=== PATIENT | female | born 1940 | race Caucasian/White ===

== ENCOUNTER 2016-06-25 11:16 | Inpatient (IN) | payer OTHER ==
[~2016-06-25] VITALS: Ht 152.4 cm; Wt 73.0 kg
[2016-06-25 11:26] VITALS: BP 138/64; PULSE 78; RESP 16; TEMP 97.8; O2SAT 100
--- NOTE | 2016-06-25 11:41 | NUR ---
Patient to ER bed to gown for evaluation. Side rails up. Report given to Eliz LEWIS.
--- NOTE | 2016-06-25 11:45 | NUR ---
PT. TO ER AAOx4 STATES THAT SHE GOT A CALL FROM HER PRIMARY CARE PHYSICIAN FOR ABNORMAL VALUES, PT. STATES THAT SHE FEELS FINE, DINIES SOB, DENIES CHEST PAIN, STATES THAT SHE FEELS EXERTIONS WITH HEAVY LOAD OF WORK OTHERWISE STATES NO FATIQUE, DENIES N/V DENIES HEADACHE, VITALS WNL
--- NOTE | 2016-06-25 11:50 | NUR ---
# 18 gauge angiocath placed to RAC. Use of asceptic technique. Opsite placed over site. Blood return noted. Blood for lab drawn from site. Flushed with 10 cc of normal saline. No evidence of infiltration noted. Patient tolerated well.
--- NOTE | 2016-06-25 11:55 | NUR ---
DR. FRIEDMAN AT BEDSIDE EXAMINING THE PT.
[2016-06-25 12:14] LABS: BILIRUBIN,URINE NEGATIVE (NEGATIVE); BLOOD, URINE NEGATIVE (NEGATIVE); CLARITY/URINE CLEAR (CLEAR); COLOR,URINE YELLOW (YELLOW); GLUCOSE,URINE NEGATIVE (NEGATIVE); KETONES,URINE NEGATIVE (NEGATIVE); LEUKOCYTE ESTERASE ,URINE NEGATIVE (NEGATIVE); NITRITE, URINE NEGATIVE (NEGATIVE); PROTEIN URINE NEGATIVE (NEGATIVE); UROBILINOGEN,URINE 0.2 (0.2-1.0)
[2016-06-25 12:17] LABS: BASOPHILS # (AUTO) 0.1 K/uL (0.0-0.2); EOSINOPHILS # (AUTO) 0.2 K/uL (0.0-0.4); MONOCYTES # (AUTO) 0.5 K/uL (0.0-1.0)
[2016-06-25 12:21] LABS: LYMPHOCYTES # (AUTO) 1.4 K/uL (1.0-5.5)
[2016-06-25 12:29] LABS: PROTHROMBIN TIME 10.4 SECS (9.5-12.5)
[2016-06-25 12:33] LABS: BASOPHILS % (AUTO) 1.2 % (0.0-2.0); LYMPHOCYTES % (AUTO) 26.4 % (20.5-51.5); MEAN CORPUSCULAR HEMOGLOBIN 17 pg (27-31); MEAN CORPUSCULAR HGB CONC 29 % (32-36); MEAN CORPUSCULAR VOLUME 61 fL (79.0-98.0); MONOCYTES % (AUTO) 8.8 % (1.7-9.3); NEUTROPHILS % (AUTO) 60.6 % (40.0-70.0); PLATELET COUNT (AUTO) 344 K/uL (130-430); RED BLOOD CELL COUNT(AUTO) 3.52 MIL/uL (4.2-6.2); RED CELL DISTRIBUTION WIDTH 18.4 % (9.0-15.0); WHITE BLOOD COUNT (AUTO) 5.2 K/uL (4.8-10.8)
[2016-06-25 12:35] LABS: HEMATOCRIT 21.4 % (36-48); HEMOGLOBIN 6.1 g/dL (12.0-16.0)
[2016-06-25 12:48] LABS: ANION GAP 5 (5-15); CALCIUM 8.9 mg/dL (8.4-11.0); CHLORIDE 105 mmol/L (98-107); CREATININE 0.69 mg/dL (0.55-1.30); GLUCOSE 104 mg/dL (70-99); POTASSIUM 4.2 mmol/L (3.5-5.1); SODIUM SERUM 136 mmol/L (136-145); UREA NITROGEN, BLOOD 14 mg/dL (8-21)
[2016-06-25 12:52] LABS: ALANINE AMINOTRANSFERASE 18 U/L (12-78); ALBUMIN 4.3 g/dL (3.4-4.8); ASPARTATE AMINOTRANSFERASE 11 U/L (10-37); TOTAL BILIRUBIN 0.5 mg/dL (0.0-1.0)
[2016-06-25] MEDS ORDERED: RANI-362 PO (12:52)
[2016-06-25] MEDS ORDERED: NAPR-227 PO (12:52)
[2016-06-25] MEDS ORDERED: AMOX-426 PO (12:52)
[2016-06-25] MEDS ORDERED: BECL8.7H (12:52)
[2016-06-25] MEDS ORDERED: LOVA20TA2 PO (12:52)
[2016-06-25] MEDS ORDERED: METF-509 PO (12:52)
--- NOTE | 2016-06-25 12:53 | NUR ---
MEDICATION RECONCILIATION COMPLETED
--- NOTE | 2016-06-25 13:10 | NUR ---
OBTAINED CONSENT TO BLOOD TRANSFUSION, PLACED IN CHART, INSTRUCTIONS EXLAINED BY MD FRIEDMAN AT BEDSIDE
--- NOTE | 2016-06-25 14:15 | NUR ---
Patient will be admitted to care of DR. HOLLAND. Admitted to MED SURG unit. Will go to room 129A. Summary report printed. Report given to CLAUDY LEWIS.
--- NOTE | 2016-06-25 14:22 | NUR ---
ADMISSION NOTE Received patient from ER via [email or web address], received report from Eliz LEWIS. Patient admitted with diagnosis of Anemia. Patient oriented to hospital routine, call light, toileting and safety-patient verbalized understanding.
[2016-06-25 14:30] VITALS: BP 126/47; PULSE 75; RESP 18; TEMP 98.3; O2SAT 100
--- NOTE | 2016-06-25 14:40 | NUR ---
BT INITIATION:H 6.05/08.4 Consent signed per agreeing to administration of blood. Blood has been type and crossmatched. Blood sent from blood bank. Information on unit of blood checked against patient wristband at bedside by two nurses. All information matches. Patient or responsible alliance party informed of potential complications associated with blood transfusion. Informed of possible transfusion reaction symptoms. Aware of need to notify nurse at once of itching, shortness of breath, flushing, feeling of impending doom, or other symptoms not previously present. Vital signs taken within 5 minutes prior to initiation of transfusion. RN will remain with patient for first 15 minutes of transfusion at which time vital signs will be re-assessed.
[2016-06-25] MEDS ORDERED: PANTOPRAZOLE SODIUM 80 MG in NS 100 ML IV ONE (16:00)
[2016-06-25 16:12] VITALS: BP 139/72; PULSE 77; RESP 17; TEMP 98; O2SAT 100
--- NOTE | 2016-06-25 17:25 | NUR ---
TRANSFUSION COMPLETED 1st unit of PRBC completed, pt afebrile, no s/s adverse reaction to blood. Protonix drip now infusing well to RAC at ordered rate with no s/s infiltration to site. Needs met, call light within reach.
[2016-06-25] MEDS ORDERED: DEXTROSE 50% JECT 50 ML DISP.SYRIN IVP PRN (17:45)
--- NOTE | 2016-06-25 17:45 | NUR ---
CALLED GI CONSULT TO DR REYNOSO, DR FERNANDEZ TELEVISION MECHANIC, RE: GI BLEED. SPOKE TO JOSE LUIS
[2016-06-25 18:15] LABS: IRON (SERUM) 13 mcg/dL (37-145); TOTAL IRON BIND. CAPACITY 482 ug/dL (250-450)
[2016-06-25 18:48] LABS: HEMATOCRIT 22.8 % (36-48); HEMOGLOBIN 6.7 g/dL (12.0-16.0)
--- NOTE | 2016-06-25 19:05 | NUR ---
CLOSING NOTE Pt resting quietly in bed with no s/s resp distress, no c/o pain or discomfort. IVF now infusing well to RAC at ordered rate with no s/s infiltration to site. Pt remains NPO. Needs met, call light within reach.
[2016-06-25] MEDS: D5NS 1,000 ML IV SCH (19:27)
[2016-06-25 20:00] VITALS: BP_SYST 131; BP_SYST 149; BP_DIAS 74; BP_DIAS 79; PULSE 67; PULSE 69; RESP 18; TEMP 97.2; TEMP 98.3; O2SAT 97; O2SAT 99
--- NOTE | 2016-06-25 20:00 | NUR ---
Opening Note Report received from day shift RN. Patient is in stable condition. IV, 18g is on the RAC running D5NS@100ml/hr. One unit of PRBC's was transfused during the day shift. One more unit is pending. While transfuse as soon as possible. Call light is within reach. Instructed to use it whenever in need of assistance.
--- NOTE | 2016-06-25 22:03 | NUR ---
Rounds Patient is in stable condition. Currently is being transfused with second unit of PRBC. Will call lab to have H&H drawn when transfusion is over.
--- NOTE | 2016-06-26 | NUR ---
Blood transfusion Second transfusion of PRBC is complete. Lab called to have H&H drawn. Will follow up with results.
[2016-06-26 00:44] VITALS: BP 136/77; PULSE 73; RESP 17; TEMP 97.6; O2SAT 96
[2016-06-26] MEDS: PANTOPRAZOLE SODIUM 40 MG/VIAL (PROTONIX) IVP SCH ×3 (00:48→23:44)
[2016-06-26 01:29] LABS: HEMATOCRIT 25.3 % (36-48); HEMOGLOBIN 7.5 g/dL (12.0-16.0)
--- NOTE | 2016-06-26 02:31 | NUR ---
Rounds Patient is currently resting in bed. No signs of distress noted. Call light is within reach. Still waiting for current H&H results.
--- NOTE | 2016-06-26 04:30 | NUR ---
Rounds Patient is in stable condition. Call light is within reach.
[2016-06-26 04:43] VITALS: BP 116/54; PULSE 66; RESP 18; TEMP 98.3; O2SAT 98
--- NOTE | 2016-06-26 05:04 | NUR ---
H&H Results. Called that lab inquiring regarding latest H&H. Spoke with Yesy from the lab. Stated that the latest results will be found under yesterday's date 06/25/16 with the time of 0138.
[2016-06-26 06:17] LABS: HEMATOCRIT 26.6 % (36-48); HEMOGLOBIN 7.7 g/dL (12.0-16.0)
--- NOTE | 2016-06-26 06:22 | NUR ---
Closing Note Patient is resting in bed. Current blood sugar is 115. No coverage needed. IV is on the RAC 18g running D5NS@100ml/hr. Call light is within reach. Consult with Dr. Whitney pending for today. Will give report to the oncoming nurse.
[2016-06-26] MEDS: D5NS 1,000 ML IV SCH ×2 (07:35→23:45)
--- NOTE | 2016-06-26 07:35 | NUR ---
rn notesL patient is aaox4. afebrile. vss stable. lungs bilaterally clear. abdomen soft and non distended. still on npo status. awaiting for Dr Whitney to come and evaluate the patient. has iv access on the rt ac #18 with D5Ns at 100cc/hr infusing on well. call lights within reach. maintained safety measures. informed patient to call for assistance. family at the bedside.
--- NOTE | 2016-06-26 08:00 | NUR ---
rounds: patient is stable. no pain nor distress noted.
[2016-06-26 08:33] VITALS: BP 137/63; PULSE 68; RESP 18; TEMP 97; O2SAT 99
--- NOTE | 2016-06-26 09:46 | NUR ---
due meds given.
--- NOTE | 2016-06-26 10:00 | NUR ---
Dr Iniguez called for low H/H result. awaiting to call back.
--- NOTE | 2016-06-26 11:04 | NUR ---
Dr Iniguez came and evaluate the patient. made orders for prbc 2 more units.
[2016-06-26] MEDS: INSULIN REGULAR, HUMAN 100 UNITS/ML, 10 ML VIAL (novoLIN R) SUBCUT PRN ×2 (12:03→17:39)
[2016-06-26 12:06] LABS: HEMATOCRIT 26.4 % (36-48); HEMOGLOBIN 7.9 g/dL (12.0-16.0)
[2016-06-26 12:30] VITALS: BP 132/71; PULSE 66; RESP 16; TEMP 97; O2SAT 100
--- NOTE | 2016-06-26 13:00 | NUR ---
still on npo status. latest bs is 104mg/dl. no coverage given.
--- NOTE | 2016-06-26 15:10 | NUR ---
first unit of Packed red blood cell. started at this time. vss stable.
[2016-06-26 16:30] VITALS: BP 138/67; PULSE 60; RESP 16; TEMP 99.8; O2SAT 100
--- NOTE | 2016-06-26 17:00 | NUR ---
requested to have throat swab. assists on adls.
--- NOTE | 2016-06-26 18:00 | NUR ---
bs latest is 85mg/dl. no coverage given. families is at the bedside.
--- NOTE | 2016-06-26 18:10 | NUR ---
first unit packed red blood ended at this time. afebrile vss stable. and documented. no hemolytic reaction noted. patient is stable
--- NOTE | 2016-06-26 19:00 | NUR ---
laboratory department called spoke to Valentina, to sent the credit union examiner to draw the h/h due for mark
--- NOTE | 2016-06-26 19:35 | NUR ---
sbar report given to incoming nurse Bettina LEWIS
[2016-06-26 19:53] LABS: HEMOGLOBIN 8.9 g/dL (12.0-16.0)
[2016-06-26 19:55] LABS: HEMATOCRIT 29.6 % (36-48)
[2016-06-26 20:00] VITALS: BP 149/74; PULSE 67; RESP 18; TEMP 98.3; O2SAT 97
--- NOTE | 2016-06-26 20:00 | NUR ---
Opening Note Report received from the day shift nurse. Patient is in stable condition. Currently NPO. GI consult is pending. Received one unit of PRBC during the day shit. One unit is pending for the warehouse worker 2nd shift. Will have H&H checked after the blood transfusion.
--- NOTE | 2016-06-26 22:00 | NUR ---
Rounds Patient is currently receiving second unit of PRBC. Tolerating well. Will have H&H checked once transfusion is over. Call light is within reach.
[2016-06-27] VITALS: BP 139/78; PULSE 55; RESP 18; TEMP 97.3; O2SAT 100
--- NOTE | 2016-06-27 | NUR ---
Rounds Patient is in stable condition. Currently sleeping in bed. Call light is within reach. No signs of distress noted.
[2016-06-27 01:16] LABS: HEMATOCRIT 32.1 % (36-48); HEMOGLOBIN 9.7 g/dL (12.0-16.0)
--- NOTE | 2016-06-27 02:00 | NUR ---
Rounds Patient is currently sleeping in bed. Call light is within reach.
[2016-06-27 04:00] VITALS: BP 136/72; PULSE 62; RESP 18; TEMP 97.6; O2SAT 99
--- NOTE | 2016-06-27 04:12 | NUR ---
Rounds Patient is in stable condition. No signs of distress noted. Call light is within reach.
[2016-06-27] MEDS: D5NS 1,000 ML IV SCH ×2 (05:39→18:00)
--- NOTE | 2016-06-27 06:09 | NUR ---
Closing Note Patient is in stable condition. Current blood sugar is 103. No coverage needed. IV is on the RAC running D5NS@100. Will give report to oncoming nurse and endorse to follow up with GI consult.
[2016-06-27 07:49] LABS: ALANINE AMINOTRANSFERASE 19 U/L (12-78); ALBUMIN 3.6 g/dL (3.4-4.8); ANION GAP 6 (5-15); ASPARTATE AMINOTRANSFERASE 13 U/L (10-37); CALCIUM 9.1 mg/dL (8.4-11.0); CHLORIDE 106 mmol/L (98-107); CREATININE 0.64 mg/dL (0.55-1.30); GLUCOSE 109 mg/dL (70-99); SODIUM SERUM 139 mmol/L (136-145); TOTAL BILIRUBIN 1.6 mg/dL (0.0-1.0); TOTAL PROTEIN, SERUM 6.4 g/dL (6.4-8.3); UREA NITROGEN, BLOOD 7 mg/dL (8-21)
[2016-06-27 07:55] LABS: BASOPHILS % (AUTO) 0.9 % (0.0-2.0); EOSINOPHILS # (AUTO) 0.2 K/uL (0.0-0.4); HEMATOCRIT 33.1 % (36-48); HEMOGLOBIN 10.2 g/dL (12.0-16.0); LYMPHOCYTES # (AUTO) 1.1 K/uL (1.0-5.5); LYMPHOCYTES % (AUTO) 25.9 % (20.5-51.5); MEAN CORPUSCULAR HEMOGLOBIN 21 pg (27-31); MEAN CORPUSCULAR HGB CONC 31 % (32-36); MEAN CORPUSCULAR VOLUME 69 fL (79.0-98.0); MONOCYTES # (AUTO) 0.4 K/uL (0.0-1.0); MONOCYTES % (AUTO) 10.5 % (1.7-9.3); NEUTROPHILS # (AUTO) 2.5 K/uL (1.8-7.7); NEUTROPHILS % (AUTO) 57.7 % (40.0-70.0); PLATELET COUNT (AUTO) 236 K/uL (130-430); RED CELL DISTRIBUTION WIDTH 25.4 % (9.0-15.0)
[2016-06-27 07:57] LABS: WHITE BLOOD COUNT (AUTO) 4.2 K/uL (4.8-10.8)
[2016-06-27 08:00] VITALS: BP 137/78; PULSE 59; RESP 18; TEMP 97.3; O2SAT 100
--- NOTE | 2016-06-27 08:30 | NUR ---
PATIENT IS AWAKE AND ALERT, VISITED BY DR SAEED. DR FERNANDEZ PAGED AGAIN REGARDING CONSULT FROM TWO DAYS AGO. PT HAS STILL NOT BEEN SEEN
[2016-06-27] MEDS: PANTOPRAZOLE SODIUM 40 MG/VIAL (PROTONIX) IVP SCH ×2 (09:02→21:05)
--- NOTE | 2016-06-27 09:07 | NUR ---
GI Consult: Called and spoke with Lakisha at [facility]. Consult for GI bleed will be given to Dr. Argueta.
--- NOTE | 2016-06-27 09:30 | NUR ---
PATIENT AMBULATED WITH TRANSPORTER DRIVER TO SHOWER
[2016-06-27 10:34] LABS: IRON (SERUM) 39 mcg/dL (37-145); TOTAL IRON BIND. CAPACITY 409 ug/dL (250-450)
--- NOTE | 2016-06-27 10:45 | NUR ---
PATIENT HAS FAMILY AT BEDSIDE. DR SAEED IN TO SEE PATIENT.
--- NOTE | 2016-06-27 11:20 | NUR ---
DR FERNANDEZ IN TO SEE PATIENT. ORDERS FOR EGD, COLONOSCOPY CONSENT GIVEN. NPO AFTER MN
[2016-06-27 12:28] VITALS: BP 135/63; PULSE 63; RESP 16; TEMP 98.5; O2SAT 98
--- NOTE | 2016-06-27 12:30 | NUR ---
PATIENT GIVEN CLEAR LIQUID DIET, GIVEN BROTH, JUICES AND PITCHER OF WATER
[2016-06-27 13:47] LABS: HEMATOCRIT 35.7 % (36-48); HEMOGLOBIN 11.1 g/dL (12.0-16.0)
--- NOTE | 2016-06-27 14:02 | NUR ---
PATIENT AMBULATED TO RESTROOM
[2016-06-27] MEDS ORDERED: MAGNESIUM CITRATE 300 ML ORAL SOLUTION PO ONE (17:00)
[2016-06-27 19:42] LABS: HEMATOCRIT 35.3 % (36-48); HEMOGLOBIN 11.1 g/dL (12.0-16.0)
[2016-06-27 20:00] VITALS: BP 125/67; PULSE 66; RESP 18; TEMP 98.9; O2SAT 99
--- NOTE | 2016-06-27 20:00 | NUR ---
PM Rounds Pt awake alert oriented x 4. clear speech. Breathing symmetrically, non labored breathing. IV on the right AC 20g, D5 NS at 100ml/hr, patent. Pt having clear liquid at the time. Denied any abdominal discomfort, or nausea at the time. educated to use call light for assistance. verbalized understanding. Pt aware of plan of care. NPO after midnight. Safety precaution in place. Bed in the lowest positioned, locked. call light within reach. Will continue to monitor
[2016-06-28] VITALS (7 sets, daily range): BP systolic 105–159; BP diastolic 49–77; PULSE 60–70; RESP 15–20; TEMP 97.5–99.2; O2SAT 95–99
--- NOTE | 2016-06-28 | NUR ---
Note Blood sugar level of 156mg/dL. Pt NPO at the time. No insulin coverage administered.
[2016-06-28] MEDS: INSULIN REGULAR, HUMAN 100 UNITS/ML, 10 ML VIAL (novoLIN R) SUBCUT PRN (00:51)
--- NOTE | 2016-06-28 02:16 | NUR ---
Rounds eye closed. Pt asleep. No facial grimacing noted.
[2016-06-28] MEDS: D5NS 1,000 ML IV SCH ×4 (04:22→20:48)
--- NOTE | 2016-06-28 06:25 | NUR ---
Closing note Pt awake alert. Blood sugar level of 122mg/dL. Pt aware of plan of care for this morning. consent in chart. Hourly rounds done throughout the shift. Comfort needs met throughout the shift. call light within reach. will endorse AM shift nurse via SBAR method to continue care. educated to use call light for assistance. verbalized understanding. call light in reach.
[2016-06-28 07:00] LABS: ALANINE AMINOTRANSFERASE 18 U/L (12-78); ALBUMIN 3.4 g/dL (3.4-4.8); ANION GAP 7 (5-15); ASPARTATE AMINOTRANSFERASE 11 U/L (10-37); CALCIUM 8.8 mg/dL (8.4-11.0); CHLORIDE 107 mmol/L (98-107); CREATININE 0.65 mg/dL (0.55-1.30); GLUCOSE 109 mg/dL (70-99); POTASSIUM 3.6 mmol/L (3.5-5.1); SODIUM SERUM 142 mmol/L (136-145); TOTAL BILIRUBIN 1.1 mg/dL (0.0-1.0); TOTAL PROTEIN, SERUM 6.3 g/dL (6.4-8.3); UREA NITROGEN, BLOOD 6 mg/dL (8-21)
[2016-06-28 07:02] LABS: EOSINOPHILS # (AUTO) 0.2 K/uL (0.0-0.4); EOSINOPHILS % (AUTO) 4.4 % (0.0-4.0); HEMATOCRIT 32.4 % (36-48); HEMOGLOBIN 9.9 g/dL (12.0-16.0); LYMPHOCYTES # (AUTO) 1.2 K/uL (1.0-5.5); LYMPHOCYTES % (AUTO) 25.1 % (20.5-51.5); MEAN CORPUSCULAR HEMOGLOBIN 22 pg (27-31); MEAN CORPUSCULAR HGB CONC 31 % (32-36); MEAN CORPUSCULAR VOLUME 70 fL (79.0-98.0); MONOCYTES # (AUTO) 0.5 K/uL (0.0-1.0); MONOCYTES % (AUTO) 10.4 % (1.7-9.3); NEUTROPHILS # (AUTO) 2.8 K/uL (1.8-7.7); NEUTROPHILS % (AUTO) 59.1 % (40.0-70.0); PLATELET COUNT (AUTO) 254 K/uL (130-430); RED BLOOD CELL COUNT(AUTO) 4.62 MIL/uL (4.2-6.2); RED CELL DISTRIBUTION WIDTH 25.6 % (9.0-15.0); WHITE BLOOD COUNT (AUTO) 4.7 K/uL (4.8-10.8)
--- NOTE | 2016-06-28 07:30 | NUR ---
OPENING NOTE PATIENT IS AWAKE, ALERT. ASKING TO TAKE A SHOWER. PATIENT WAS ADVISED TO SHOWER AFTER PLANNED COLONOSCOPY. GIVEN LINENS AND SOAPS TO BATHE HERSELF AT THE SINK. AMBULATES WITHOUT ASSIST, STEADY GAIT.
[2016-06-28] MEDS: PANTOPRAZOLE SODIUM 40 MG/VIAL (PROTONIX) IVP SCH ×2 (09:47→20:52)
--- NOTE | 2016-06-28 10:00 | NUR ---
FAMILY IS AT BEDSIDE. PATIENT IS LYING IN BED, REMAINS NPO AWAITING EGD/COLONOSCOPY.
--- NOTE | 2016-06-28 11:41 | NUR ---
PATIENT TAKEN TO GI LAB VIA STU
[2016-06-28] MEDS ORDERED: MIDAZOLAM HCL 5 MG/5 ML VIAL ONE (11:49)
[2016-06-28] MEDS: MIDAZOLAM HCL 5 MG/5 ML VIAL ONE ×4 (11:51→12:14)
[2016-06-28] MEDS: fentaNYL CITRATE/PF 100 MCG/2 ML AMP ONE ×4 (11:53→12:16)
[2016-06-28] MEDS ORDERED: SIMETHICONE 40 MG/0.6 ML ML ONE (12:00)
--- NOTE | 2016-06-28 12:48 | NUR ---
PATIENT RETURNED FROM GI LAB VIA STU, CESAR ALERT. INCOMPLETE COLONOSCOPY PER GI NURSE. GIVEN JUICE, WATER AND ICE PER CLEAR LIQUID DIET. FAMILY IS AT BEDSIDE.
--- NOTE | 2016-06-28 13:56 | NUR ---
PATIENT TAKEN TO RADIOLOGY FOR BARIUM ENEMA VIA WHEELCHAIR
--- NOTE | 2016-06-28 14:41 | NUR ---
HCP/PA: Called JUAN Sy made her aware of discharge home if barium enema is negative.
--- NOTE | 2016-06-28 15:42 | NUR ---
PLAN TO DC HOME WHEN BARIUM ENEMA STUDY COMES BACK NEGATIVE
--- NOTE | 2016-06-28 19:35 | NUR ---
initial nursing notes: Patient is awake. Patient has IV fluid infusing on the right AC IV access. Patient denies of having pain.
--- NOTE | 2016-06-28 21:35 | NUR ---
nursing rounds: Patient is ambulatory with steady gait. Patient stated that she is getting ready to go to sleep.
--- NOTE | 2016-06-28 22:56 | NUR ---
MD PRAKASH CALLED [facility] AT SPOKE WITH DR.REZVANI COLLIER FARHAD METAL CRAFTS TEACHER.
--- NOTE | 2016-06-28 23:35 | NUR ---
nursing rounds: Reminded patient that she will be NPO after midnight for CT of the abdomen tomorrow. Patient verbalized understanding.
[2016-06-29 01:02] VITALS: BP 144/76; PULSE 60; RESP 18; TEMP 98.6; O2SAT 96
--- NOTE | 2016-06-29 01:35 | NUR ---
nursing rounds: Patient calmly resting in bed. Call light within patient's reach.
--- NOTE | 2016-06-29 03:35 | NUR ---
nursing rounds: Patient is asleep. Patient has no shortness of breath.
[2016-06-29 05:04] VITALS: BP 155/67; PULSE 63; RESP 16; TEMP 98.9; O2SAT 98
--- NOTE | 2016-06-29 05:35 | NUR ---
nursing rounds: Patient calmly resting in bed. Patient has no respiratory distress.
--- NOTE | 2016-06-29 07:40 | NUR ---
closing nursing notes: Patient is awake, alert and oriented X 4. Patient is in no acute respiratory distress. No episodes of fall and no injuries throughout the night shift supervisor. Provided nursing report to incoming morning shift nurse, JOSHUA Frey, at patient's bedside.
[2016-06-29 08:00] VITALS: BP 149/70; PULSE 73; RESP 20; TEMP 99.3; O2SAT 96
--- NOTE | 2016-06-29 08:00 | NUR ---
OPENING NOTE PATIENT IS AWAKE, ALERT AND ORIENTED. DAUGHTER IS AT BEDSIDE. PATIENT'S IV WRAPPED IN PREPARATION FOR A SHOWER. X RAY AT BEDSIDE WITH GASTROGRAFIN DRINK. PROCESS EXPLAINED TO PATIENT AND DAUGHTER BY MANAGER LABORATORY.
[2016-06-29] MEDS ORDERED: DIATR MEGLU/DIATRIZ SOD 30 ML SOLUTION PO ONE (08:24)
--- NOTE | 2016-06-29 08:45 | NUR ---
PATIENT IS DRINKING ORAL CONTRAST
[2016-06-29] MEDS: PANTOPRAZOLE SODIUM 40 MG/VIAL (PROTONIX) IVP SCH ×2 (09:40→20:57)
--- NOTE | 2016-06-29 10:31 | NUR ---
PATIENT TAKEN TO CT SCAN VIA WHEELCHAIR. DR HOLLAND IN TO SEE PATIENT.
[2016-06-29 11:27] VITALS: BP 150/80; PULSE 64; RESP 18; TEMP 96.6; O2SAT 100
--- NOTE | 2016-06-29 11:28 | NUR ---
PATIENT RETURNED FROM CT VIA WHEELCHAIR.
--- NOTE | 2016-06-29 11:34 | NUR ---
CONSULT Spoke with Leda regarding request for consultation with Dr. Alaniz for reason: mass in abdomen. Per Dr. Shirley, given okay for consult.
--- NOTE | 2016-06-29 12:28 | NUR ---
SPOKE WITH PATIENT AT BEDSIDE AFTER DR HOLLAND EXPLAINED THE CT AND X RAY RESULTS. PATIENT STATED SHE WAS SCARED, SHE IS WORRIED IT IS A TUMOR OR CANCER. HER DAUGHTER SAID THAT SHE STARTED CRYING. PER PATIENT FAMILY DR HOLLAND TOLD THEM THEY WOULD BE SEEING A SURGEON AND HE WOULD BE THE AUTHORITY ON WHAT THE MASS IN HER ABDOMEN IS EXACTLY. PATIENT DENIES NEED FOR ANXIOLYTIC MEDICATIONS.
[2016-06-29 15:27] VITALS: Ht 152.4 cm; Wt 73.0 kg
--- NOTE | 2016-06-29 16:30 | NUR ---
IV SITE NO LONGER PATENT. PULLED IV, DRESSED SITE AND REPLACED IV 18G IN RAC IN NEW VEIN. CLEAN, DRY AND INTACT. FLUIDS INFUSING
[2016-06-29 16:33] VITALS: BP 143/72; PULSE 63; RESP 18; TEMP 97.1; O2SAT 96
[2016-06-29] MEDS: D5NS 1,000 ML IV SCH ×2 (17:14→21:45)
--- NOTE | 2016-06-29 18:00 | NUR ---
DR VÁZQUEZ IN TO SEE PATIENT. NEW ORDERS GIVEN. PATIENT REMAINS STABLE, DENIES PAIN OR NAUSEA.
[2016-06-29] MEDS ORDERED: MAGNESIUM CITRATE 300 ML ORAL SOLUTION PO ONE (19:30)
[2016-06-29 20:00] VITALS: BP 149/78; PULSE 62; RESP 20; TEMP 99.8; O2SAT 99
--- NOTE | 2016-06-29 20:00 | NUR ---
PM NOTE: PATIENT ALERT/ORIENTED. DENIES PAIN. RESPIRATIONS EVEN AND UNLABORED BILATERALLY TO AUSCULTATION. FAMILY PRESENT AT BEDSIDE. CALL LIGHT WITHIN REACH. ALL NEEDS MET AT THIS TIME.
--- NOTE | 2016-06-29 22:00 | NUR ---
Rounds: Ambulated to bathroom and back to bed. Gait steady. Denies discomfort. Voiding without difficulty. Side rails up with bed in low position. Call light within reach.
--- NOTE | 2016-06-30 | NUR ---
Rounds: Patient restful. Respirations unlabored and regular. Reminded of NPO status at this time. Patient verbalizes understanding of instruction. No distress noted at this time.
[2016-06-30 00:46] VITALS: BP 141/70; PULSE 63; RESP 17; TEMP 97.8; O2SAT 97
--- NOTE | 2016-06-30 02:00 | NUR ---
Rounds: Continues restful without s/s of distress. Respirations regular and unlabored. Bed in low position with call light in reach.
[2016-06-30 04:00] VITALS: BP 157/88; PULSE 70; RESP 18; TEMP 96.9; O2SAT 100
--- NOTE | 2016-06-30 04:00 | NUR ---
Rounds: Patient ambulated to bathroom with steady gait. Voiding without difficulty. Call light within reach. Bed in low position.
--- NOTE | 2016-06-30 06:00 | NUR ---
Closing note: Patient up to void. Sitting on edge of bed. Has been NPO for am test. No s/s of distress at this time. Bed in low position and call light within reach.
[2016-06-30 08:00] VITALS: BP 149/75; PULSE 65; RESP 18; TEMP 98.1; O2SAT 98
--- NOTE | 2016-06-30 08:14 | NUR ---
OPENING NOTE PATIENT IS UP TO CHAIR, DAUGHTER AT BEDSIDE. VITALS OBTAINED. PATIENT IS NPO PENDING COLONOSCOPY WITH DR VÁZQUEZ. DENIES ANY PAIN NOW BUT STATES SHE HAD A BAD MIGRAINE HEADACHE LAST NIGHT AROUND 4AM. NEW GOWN GIVEN.
[2016-06-30] MEDS: PANTOPRAZOLE SODIUM 40 MG/VIAL (PROTONIX) IVP SCH (09:00)
--- NOTE | 2016-06-30 09:13 | NUR ---
DR HOLLAND IN TO SEE PATIENT. CT SCAN STILL PENDING.
--- NOTE | 2016-06-30 10:30 | NUR ---
PATIENT TAKEN TO CT FOR SCAN
[2016-06-30] MEDS ORDERED: DIATR MEGLU/DIATRIZ SOD 30 ML SOLUTION PO ONE (10:44)
--- NOTE | 2016-06-30 11:30 | NUR ---
CT SCAN COMPLETE
[2016-06-30 12:00] VITALS: BP 147/80; PULSE 58; RESP 18; TEMP 97.1; O2SAT 98
[2016-06-30 13:09] VITALS: BP 141/76; PULSE 64; RESP 18; TEMP 97.8; O2SAT 99
--- NOTE | 2016-06-30 15:25 | NUR ---
DR KATHIE PRAKASH
--- NOTE | 2016-06-30 16:00 | NUR ---
PER DR VÁZQUEZ PT HAS APPT TOMORROW AT HIS OFFICE. CT REPORT READ TO HIM BY MYSELF. PATIENT'S IV DC'D AND PRESSURE DRESSING APPLIED. DAUGHTER AND GRAND DAUGHTER AT BEDSIDE. ONE PRESCRIPTION GIVEN WITH INFORMATION AND TEACHING SESSION REGARDING USE AND SIDE EFFECTS. PATIENT VERBALIZED UNDERSTANDING. ALL MEDS RECONCILED, ALL BELONGINGS ACCOUNTED FOR. PATIENT TAKE TO PRIVATE VEHICLE VIA WHEELCHAIR.
--- NOTE | 2016-07-06 14:57 | NUR ---
Discharge Follow Up Phone Call FRAMEMAN phoned patient, . Patient stated she was doing well. She attended a follow up appointment with Dr Alaniz on 07/01/16 and was told she needed a colonoscopy. She called again today and was told they are awaiting authorization from patient's insurance. Patient will continue to follow up. Patient stated she has a follow up appointment with her PCP, Dr Pizarro, next week but was planning to cancel it just in case her colonoscopy that day. FRAMEMAN discussed with patient. As per patient, she was told to discontinue metformin by Dr Shirley but metformin is listed on continued medications. Patient has stopped the metformin and her sugars are staying stable. FRAMEMAN encouraged patient to follow up and discuss with Dr Pizarro. Patient agreed. Patient has help from her daughters. Patient has not been driving as instructed. patient has not other questions or concerns.
== END 2016-06-30 15:50 | disposition home or self-care (01) | DRG 375 ==
LOC: SED 11:16 → SMU 13:52
PROVIDERS: ADMIT Internal Medicine Hospice and Palliative Medicine; ATTEND Internal Medicine Hospice and Palliative Medicine
PROC: 30233N1 Transfusion of Nonautologous Red Blood Cells into Peripheral Vein, Percutaneous Approach (ICD-10-PCS; principal; 2016-06-25)
PROC: 0DB68ZX Excision of Stomach, Via Natural or Artificial Opening Endoscopic, Diagnostic (ICD-10-PCS; 2016-06-28)
PROC: 0DJD8ZZ Inspection of Lower Intestinal Tract, Via Natural or Artificial Opening Endoscopic (ICD-10-PCS; 2016-06-28)
PROC: BD14YZZ Fluoroscopy of Colon using Other Contrast (ICD-10-PCS; 2016-06-28)
PROC: 0DB98ZX Excision of Duodenum, Via Natural or Artificial Opening Endoscopic, Diagnostic (ICD-10-PCS; 2016-06-28 12:00)
DX: C18.9 Malignant neoplasm of colon, unspecified (principal); K92.2 Gastrointestinal hemorrhage, unspecified; D50.9 Iron deficiency anemia, unspecified; E11.9 Type 2 diabetes mellitus without complications; E78.5 Hyperlipidemia, unspecified; I10 Essential (primary) hypertension; K44.9 Diaphragmatic hernia without obstruction or gangrene; Z86.010 Personal history of colon polyps; Z90.710 Acquired absence of both cervix and uterus; Z90.722 Acquired absence of ovaries, bilateral; Z88.5 Allergy status to narcotic agent; Z79.899 Other long term (current) drug therapy
CPT/HCPCS: 36415; 43239; 45378; 74270-TC; 80053; 81003; 82378; 82607; 82962; 83540-TC; 83550-TC; 83605; 85018-TC; 85025; 85610-TC; 85730-TC; 86886; 86900; 86901; 86920; 87040-TC; 87081; 88305; 88312; 88313; 93005; 99291; C9113; J1815; J2250; J3010; J7030; J7040; J7042; J7050; P9021; Q9964

== ENCOUNTER 2016-07-23 09:41 | Day surgery (SDC) | payer OTHER ==
[~2016-07-23] VITALS: Ht 182.9 cm; Wt 69.4 kg
[~2016-07-23 09:41] MED LIST: BECL8.7H; LOVA20TA2 PO; METF-509 PO
[2016-07-23] MEDS ORDERED: PROPOFOL 200MG/ 20ML VIAL (DIPRIVAN) IV ONE (12:15)
[2016-07-23] MEDS ORDERED: MIDAZOLAM HCL 5 MG/5 ML VIAL IVP ONE (12:15)
[2016-07-23] MEDS ORDERED: LR 1,000 ML IV SCH (12:49)
[2016-07-23] MEDS ORDERED: HYDROmorphone 1 MG INJ. 1 MG/ML AMPUL IVP PRN (13:00)
[2016-07-23] MEDS ORDERED: MEPERIDINE HCL/PF 25 MG/ML DISP.SYRIN IVP PRN (13:00)
[2016-07-23] MEDS ORDERED: HYDROmorphone 2 MG/ML VIAL IVP PRN ×2 (13:00)
[2016-07-23 14:26] VITALS: BP_SYST 136
== END 2016-07-23 14:55 | disposition home or self-care (01) ==
LOC: SDS 09:41 → SMU 09:41 → SDS 14:55
PROVIDERS: ATTEND Surgery
DX: D12.3 Benign neoplasm of transverse colon (principal); D64.9 Anemia, unspecified; K44.9 Diaphragmatic hernia without obstruction or gangrene
CPT/HCPCS: 45381; 45385; 88305; J2250; J2704

== ENCOUNTER 2017-01-28 07:15 | Day surgery (SDC) | payer OTHER ==
[~2017-01-28] VITALS: Ht 152.4 cm; Wt 68.9 kg
[2017-01-28] MEDS ORDERED: MIDAZOLAM HCL 5 MG/ML VIAL (VERSED) IV ONE (07:16)
[2017-01-28] MEDS ORDERED: PROPOFOL 200MG/ 20ML VIAL (DIPRIVAN) IV ONE (07:16)
[2017-01-28] MEDS ORDERED: NS IRRIG SOLN 1000 ML IR ONE (07:16)
[2017-01-28] MEDS ORDERED: LR 1,000 ML IV.SOLN IV ONE (07:16)
[2017-01-28] MEDS ORDERED: MIDAZOLAM HCL 5 MG/5 ML VIAL ONE ×2 (07:39→07:41)
[2017-01-28] MEDS ORDERED: fentaNYL CITRATE/PF 100 MCG/2 ML AMP ONE (07:39)
[2017-01-28] MEDS ORDERED: LR 1,000 ML IV SCH (09:54)
[2017-01-28] MEDS ORDERED: ONDANSETRON HCL 4 MG/2 ML VIAL IVP PRN (10:00)
[2017-01-28] MEDS ORDERED: MORPHINE 4 MG/ML INJ. SYRINGE IVP PRN ×3 (10:00)
[2017-01-28 10:25] VITALS: BP_SYST 131
== END 2017-01-28 11:15 | disposition home or self-care (01) ==
LOC: SMU 07:15 → SDS 07:15
PROVIDERS: ATTEND Surgery
DX: Z09 Encounter for follow-up examination after completed treatment for conditions other than malignant neoplasm (principal); D12.3 Benign neoplasm of transverse colon; K57.30 Diverticulosis of large intestine without perforation or abscess without bleeding; K64.8 Other hemorrhoids; D64.9 Anemia, unspecified; Z87.19 Personal history of other diseases of the digestive system; K21.9 Gastro-esophageal reflux disease without esophagitis; K63.89 Other specified diseases of intestine; Z90.710 Acquired absence of both cervix and uterus
CPT/HCPCS: 45380; 88305; J2250; J2704; J7120; J3010

== ENCOUNTER 2022-03-27 12:34 | Emergency (ER) | payer OTHER ==
[~2022-03-27] VITALS: Ht 149.9 cm; Wt 72.1 kg
[~2022-03-27 12:34] MED LIST changes: -METF-509 PO; +METF-834 PO
[2022-03-27 13:01] VITALS: BP_SYST 130
[2022-03-27] MEDS ORDERED: ACET-2634 PO (13:27)
[2022-03-27] MEDS ORDERED: ACETAMINOPHEN 500 MG TABLET PO ONE (13:30)
[2022-03-27] MEDS ORDERED: HYDR-3917 PO (14:10)
[2022-03-27] MEDS ORDERED: MORPHINE 4 MG INJ. 4 MG/ML VIAL IM ONE (14:15)
--- NOTE | 2022-03-27 14:35 | NUR ---
PT APPEARS TO THE ER FROM HOME LEFT WRIST PAIN AND SWELLING FROM BRACING A FALL. PT WEIGHT BEARED DOWN ON LEFT WRIST LAST NIGHT. PT IS 10/10 PAIN. PT LIVES WITH FAMILY, AAOX3, SKIN INTACT, CAP REFILL <3SEC. NAD.
--- NOTE | 2022-03-27 14:51 | NUR ---
Placed a sugar tong splint on pt.'s left wrist & a Large size sling. Pt. received pain medication prior and tolerated the procedure well.
--- NOTE | 2022-03-27 15:00 | NUR ---
ER at bedside examining patient.
--- NOTE | 2022-03-27 15:29 | NUR ---
Patient given written and verbal discharge instructions and verbalizes understanding. ER MD discussed with patient the results and treatment provided. Patient in stable condition. ID arm band removed. Patient educated on pain management and to follow up with PMD. Opportunity for questions provided and answered. Medication side effect fact sheet provided.
[2022-03-27 15:40] VITALS: BP_SYST 130
== END 2022-03-27 15:38 | disposition home or self-care (01) ==
LOC: SED 12:34
DX: S52.572A Other intraarticular fracture of lower end of left radius, initial encounter for closed fracture (principal); E11.9 Type 2 diabetes mellitus without complications; E78.5 Hyperlipidemia, unspecified; Z88.5 Allergy status to narcotic agent; Z79.899 Other long term (current) drug therapy; W01.0XXA Fall on same level from slipping, tripping and stumbling without subsequent striking against object, initial encounter; Y93.89 Activity, other specified; Y92.89 Other specified places as the place of occurrence of the external cause; Y99.8 Other external cause status
CPT/HCPCS: 99283; 73110; 29125; 96372; J2270